=== PATIENT | female | born 1975 | race Two or more races ===

== ENCOUNTER 2016-12-30 08:17 | Emergency (ER) | payer OTHER ==
[2016-12-30 08:32] VITALS: BP 124/84; PULSE 82; TEMP 98.1; BMI 23.6
[2016-12-30] MEDS ORDERED: ASPIRIN 81 MG CHEWABLE TABLETS PO ONE (09:26)
--- NOTE | 2016-12-30 09:45 | PDOC ---
History of Present Illness <Jyotsna Lam - Last Filed: 12/30/16 11:31> <Jason Hammond - Last Filed: 12/30/16 14:31> - General Chief Complaint: Chest Pain Stated Complaint: CHEST PAIN Time Seen by Provider: 12/30/16 08:29 - History of Present Illness Initial Comments: 12/30/16 10:02 "The patient is a 41 year old female with PMHx of anemia, who presents to the ER complaining of chest pain since this morning around 7:00 am. She reports that the pain radiates to her upper back. She reports the pain is exacerbated with deep breath, cough, and movement. She reports 2 associated episodes of diaphoresis. Patient is an employee at [employer] and states nurse digital sales manager gave her a baby aspirin which did not relieve the pain. Patient reports similar symptoms in the past which were related to a prior muscular shoulder injury. Denies strenuous heavy lifting. Denies SOB, fever, cough, chills, headache or dizziness. She denies recent nausea, vomit, diarrhea or constipation. She denies recent dysuria, frequency, urgency or hematuria. Allergies: NKA Past surgical history: None reported. Social history: Nonsmoker. " (Jason Hammond) Past History <Jyotsna Lam - Last Filed: 12/30/16 11:31> - Past Medical History Thyroid Disease: Yes - Psycho/Social/Smoking Cessation Hx Anxiety: No Suicidal Ideation: No Smoking History: Unknown if ever smoked Have you smoked in the past 12 months: No Information on smoking cessation initiated: No Hx Alcohol Use: No Drug/Substance Use Hx: No Substance Use Type: None <Jason Hammond - Last Filed: 12/30/16 14:31> - Past Medical History Allergies/Adverse Reactions: Allergies Allergy/AdvReac Type Severity Reaction Status Date / Time amoxicillin Allergy Severe Hives Verified 12/30/16 09:54 penicillin G Allergy Severe Itching Verified 12/30/16 09:53 Home Medications: Ambulatory Orders Synthroid 125 mg PO DAILY 12/30/16 Review of Systems <Jyotsna Lam - Last Filed: 12/30/16 11:31> <Jason Hammond - Last Filed: 12/30/16 14:31> - Review of Systems Comments:: 12/30/16 10:04 "GENERAL/CONSTITUTIONAL: No fever or chills. No weakness. HEAD, EYES, EARS, NOSE AND THROAT: No change in vision. No ear pain or discharge. No sore throat. GASTROINTESTINAL: No nausea, vomiting, diarrhea or constipation. GENITOURINARY: No dysuria, frequency, or change in urination. CARDIOVASCULAR: +chest pain. No shortness of breath. RESPIRATORY: No cough, wheezing, or hemoptysis. MUSCULOSKELETAL: + Right Upper back pain. No joint or muscle swelling or pain. No neck pain. SKIN: No rash NEUROLOGIC: No headache, vertigo, loss of consciousness, or change in strength/ sensation. ENDOCRINE: No increased thirst. No abnormal weight change. HEMATOLOGIC/LYMPHATIC: No easy bleeding, or history of blood clots. ALLERGIC/IMMUNOLOGIC: No hives or skin allergy. " (Jason Hammond) *Physical Exam <Jyotsna Lam - Last Filed: 12/30/16 11:31> <Jason Hammond - Last Filed: 12/30/16 14:31> - Vital Signs Last Vital Signs Temp Pulse Resp BP Pulse Ox 98.1 F 82 20 124/84 100 12/30/16 08:25 12/30/16 08:25 12/30/16 08:25 12/30/16 08:25 12/30/16 08:25 - Physical Exam Comments: 12/30/16 10:05 "GENERAL: Awake, alert, and fully oriented, in no acute distress HEAD: No signs of trauma EYES: PERRLA, EOMI, sclera anicteric, conjunctiva clear ENT: Auricles normal inspection, hearing grossly normal, nares patent, oropharynx clear without exudates. Moist mucosa NECK: Normal ROM, supple, no lymphadenopathy, JVD, or masses LUNGS: Breath sounds equal, clear to auscultation bilaterally. No wheezes, and no crackles HEART: Regular rate and rhythm, normal S1 and S2, no murmurs, rubs or gallops ABDOMEN: Soft, nontender, normoactive bowel sounds. No guarding, no rebound. No masses BACK: + Right paraspinal tenderness in the upper back. EXTREMITIES: Normal range of motion, no edema. No clubbing or cyanosis. No cords, erythema, or tenderness NEUROLOGICAL: Cranial nerves II through XII grossly intact. Normal speech, normal gait SKIN: Warm, Dry, normal turgor, no rashes or lesions noted. " (Jason Hammond) Heart Score/ECG Review <CaroleJyotsna joseph - Last Filed: 12/30/16 11:31> - History History: Slightly suspicious - Electrocardiogram EKG: Non specific repolarization disturbance - Age Age: </= 44 - Risk Factors Based on the list above the patient has:: No risk factors known - Troponin Troponin: </= normal limit - Score Heart Score - Total: 1 <Jason Hammond - Last Filed: 12/30/16 14:31> - ECG Impressions Comment:: 12/30/16 09:43 No BECKI/STDs, TWI anteriorly in V1-V3, no prior EKG to compare. Intervals wnl. Rate 76 (StephanyJason) ED Treatment Course - LABORATORY CBC & Chemistry Diagram: 12/30/16 09:30 12/30/16 09:30 <Carole,Jyotsna - Last Filed: 12/30/16 11:31> - LABORATORY CBC & Chemistry Diagram: 12/30/16 09:30 12/30/16 09:30 <Jason Hammond - Last Filed: 12/30/16 14:31> - ADDITIONAL ORDERS Additional order review: Laboratory Results 12/30/16 12/30/16 12/30/16 09:30 09:30 09:30 INR PTT (Actin FS) 32.7 D-Dimer Sodium 141 Potassium 4.2 Chloride 106 Carbon Dioxide 29 Anion Gap 6 L BUN 7 Creatinine 0.6 Creat Clearance w eGFR > 60 Random Glucose 72 L Calcium 9.0 Magnesium 2.3 Total Bilirubin 0.4 AST 16 ALT 24 Alkaline Phosphatase 68 Creatine Kinase 237 H Creatine Kinase Index 1.4 CK-MB (CK-2) 3.446 Troponin I < 0.02 B-Natriuretic Peptide 42.51 Total Protein 6.8 Albumin 3.8 Lipase 187 Serum , Qual Negative 12/30/16 09:30 INR 1.19 H PTT (Actin FS) D-Dimer < 200 Sodium Potassium Chloride Carbon Dioxide Anion Gap BUN Creatinine Creat Clearance w eGFR Random Glucose Calcium Magnesium Total Bilirubin AST ALT Alkaline Phosphatase Creatine Kinase Creatine Kinase Index CK-MB (CK-2) Troponin I B-Natriuretic Peptide Total Protein Albumin Lipase Serum , Qual 12/30/16 09:30 RBC 4.65 MCV 75.1 L MCHC 31.0 L RDW 13.5 MPV 9.1 Neutrophils % 51.7 Lymphocytes % 28.4 Monocytes % 12.8 H Eosinophils % 6.2 H Basophils % 0.9 - RADIOLOGY Radiology Studies Ordered: Category Date Time Status CHEST PA & LAT [RAD] Stat Radiology 12/30/16 09:26 Completed - Medications Given in the ED: ED Medications Discontinued Medications Generic Name Dose Route Start Last Admin Trade Name Jamila PRN Reason Stop Dose Admin Aspirin 162 mg 12/30/16 09:26 12/30/16 09:48 Asa - PO 12/30/16 09:27 162 mg ONCE ONE Administration Medical Decision Making <Jyotsna Lam - Last Filed: 12/30/16 11:31> <Jason Hammond - Last Filed: 12/30/16 14:31> - Medical Decision Making 12/30/16 10:05 41 F with atypical chest pain. Likely msk as it is exacerbated by movement and is reproducible with palpation of her R upper back. Pt has anterior TWIs, concerning for possible ACS, but atypical nature of pain makes this less likely. Will trend troponins to r/o ACS. Given pleuritic nature of pain, will obtain Ddimer to r/o PE. - Labs, trop, dimer - CXR - Rpt EKG 12/30/16 14:27 Trop negative x1. 2nd troponin drawn but pt unwilling to wait for result. Repeat EKG stable with anterior TWIs. Pt states that her pain has subsided. She has PMD follow up tomorrow. Will ask for referral to cardiology. (Jason Hammond) *DC/Admit/Observation/Transfer <Jyotsna Lam - Last Filed: 12/30/16 11:31> - Discharge Dispostion Admit: No <Jason Hammond - Last Filed: 12/30/16 14:31> Diagnosis at time of Disposition: Chest pain - Discharge Dispostion Disposition: HOME Condition at time of disposition: Good - Referrals Referrals: STAFF,NOT ON [Primary Care Provider] - Yasmani Zelaya MD [Staff Physician] - - Patient Instructions Printed Discharge Instructions: DI for Atypical Chest Pain Additional Instructions: Please follow up with a returner within 1 week for further evaluation of your chest pain and abnormal EKG. Failure to have this further evaluated may lead to severe heart disease, illness, disability, or even . Call the number provided to make an appointment with our cardiology clinic. Or ask your primary doctor to refer you to another returner if you prefer. - Attestations Scribe Attestion: 12/30/16 11:32 Documentation prepared by Jyotsna Lam, acting as medical affairs director for Jason Hammond MD. (Jyotsna Lam)
[2016-12-30 09:56] LABS: BASOPHIL 0.9 % (0-2.0); EOSINOPHIL 6.2 % (0-4.5); MCH 23.3 pg (25.7-33.7); MEAN CELL VOLUME 75.1 fl (80-96); MEAN PLT VOLUME 9.1 fl (7.5-11.1); NEUTROPHILS 51.7 % (42.8-82.8); PLATELET COUNT 157 K/MM3 (134-434); RDW 13.5 % (11.6-15.6); WHITE BLOOD COUNT 3.3 K/mm3 (4.0-10.0)
[2016-12-30 10:15] LABS: ALBUMIN 3.8 g/dl (3.4-5.0); ANION GAP 6 (8-16); BILIRUBIN,TOTAL 0.4 mg/dL (0.2-1.0); CO2 29 mmol/L (21-32); CREATININE 0.6 mg/dL (0.55-1.02); GLUCOSE,RANDOM 72 mg/dL (74-106); MAGNESIUM 2.3 mg/dL (1.8-2.4); SGOT/AST 16 U/L (15-37); SGPT/ALT 24 U/L (12-78); TOT PROT 6.8 g/dl (6.4-8.2)
[2016-12-30 10:18] LABS: ALK PHOS 68 U/L (45-117); CPK 237 IU/L (26-192); INR 1.19 (0.82-1.09); TROPONIN I < 0.02 ng/ml (0.00-0.05)
[2016-12-30 10:44] LABS: D-DIMER < 200 ng/ml (<200-235)
--- NOTE | 2016-12-30 11:14 | EKG ---
Test Reason : Blood Pressure : / mmHG Vent. Rate : 076 BPM Atrial Rate : 076 BPM P-R Int : 126 ms QRS Dur : 088 ms QT Int : 386 ms P-R-T Axes : 026 069 036 degrees QTc Int : 434 ms NORMAL SINUS RHYTHM T WAVE ABNORMALITY, CONSIDER ANTERIOR ISCHEMIA ABNORMAL ECG NO PREVIOUS ECGS AVAILABLE CLINICLAL CORRELATION AND F/U TRACING INDICATED. Confirmed by MURPHY JIANG MD ([id number]) on 12/30/2016 11:14:07 AM Referred By: Confirmed By:MURPHY JIANG MD
[2016-12-30 14:53] LABS: CPK 226 IU/L (26-192); TROPONIN I < 0.02 ng/ml (0.00-0.05)
--- NOTE | 2016-12-31 16:44 | EKG ---
Test Reason : Blood Pressure : / mmHG Vent. Rate : 073 BPM Atrial Rate : 073 BPM P-R Int : 136 ms QRS Dur : 084 ms QT Int : 390 ms P-R-T Axes : 062 069 047 degrees QTc Int : 429 ms NORMAL SINUS RHYTHM T WAVE ABNORMALITY, CONSIDER ANTERIOR ISCHEMIA ABNORMAL ECG WHEN COMPARED WITH ECG OF 30-DEC-2016 08:26, NO SIGNIFICANT CHANGE WAS FOUND Confirmed by MURPHY JIANG MD ([id number]) on 12/31/2016 4:43:45 PM Referred By: Confirmed By:MURPHY JIANG MD
== END 2016-12-30 15:11 | disposition home or self-care (01) ==
LOC: JER 08:17
DX: R07.9 Chest pain, unspecified (principal); D64.9 Anemia, unspecified; Z88.0 Allergy status to penicillin
CPT/HCPCS: 36415; 71020-TC; 80053; 82553; 83690; 83735; 83880; 84484; 84703; 85025; 85379; 85610; 85730; 93005; 93010; 99283-25